=== PATIENT | female | born 1960 | race Caucasian/White ===

== ENCOUNTER → 2016-11-19 | Outpatient (CLI) | payer OTHER | LOC: LAB 14:15 | DX: Z00.00 Encounter for general adult medical examination without abnormal findings (principal); R73.02 Impaired glucose tolerance (oral); E03.4 Atrophy of thyroid (acquired); R10.11 Right upper quadrant pain; N39.0 Urinary tract infection, site not specified ==

== ENCOUNTER → 2016-11-28 | Outpatient (CLI) | payer OTHER | LOC: LAB 15:04 | DX: Z00.00 Encounter for general adult medical examination without abnormal findings (principal); N39.0 Urinary tract infection, site not specified; R73.02 Impaired glucose tolerance (oral); Z12.11 Encounter for screening for malignant neoplasm of colon ==

== ENCOUNTER → 2016-11-30 | Outpatient (CLI) | payer OTHER | LOC: RAD 08:38 | DX: R10.84 Generalized abdominal pain (principal); R93.8 Abnormal findings on diagnostic imaging of other specified body structures; N20.0 Calculus of kidney ==

== ENCOUNTER → 2016-12-05 | Outpatient (CLI) | payer OTHER | LOC: LAB 16:13 | DX: N30.01 Acute cystitis with hematuria (principal) ==

== ENCOUNTER → 2016-12-10 | Outpatient (CLI) | payer OTHER | LOC: LAB 12:52 | DX: Z00.00 Encounter for general adult medical examination without abnormal findings (principal); N30.01 Acute cystitis with hematuria; R73.02 Impaired glucose tolerance (oral) ==

== ENCOUNTER → 2017-01-07 | Outpatient (CLI) | payer OTHER | LOC: RAD 09:04 → LAB 09:04 | DX: R10.84 Generalized abdominal pain (principal); K57.30 Diverticulosis of large intestine without perforation or abscess without bleeding ==

== ENCOUNTER → 2017-02-20 | Outpatient (CLI) | payer OTHER | LOC: LAB 15:58 | DX: E11.9 Type 2 diabetes mellitus without complications (principal); K57.32 Diverticulitis of large intestine without perforation or abscess without bleeding ==

== ENCOUNTER → 2017-06-11 | Outpatient (CLI) | payer BC | LOC: LAB 07:59 | DX: E11.8 Type 2 diabetes mellitus with unspecified complications (principal); E78.2 Mixed hyperlipidemia; K57.30 Diverticulosis of large intestine without perforation or abscess without bleeding; K27.3 Acute peptic ulcer, site unspecified, without hemorrhage or perforation ==

== ENCOUNTER → 2017-10-10 | Outpatient (CLI) | payer BC | LOC: LAB 07:33 | DX: E11.9 Type 2 diabetes mellitus without complications (principal); Z88.0 Allergy status to penicillin; Z88.8 Allergy status to other drugs, medicaments and biological substances; Z91.041 Radiographic dye allergy status ==

== ENCOUNTER 2018-01-28 13:22 | Emergency (ER) | payer BC ==
[2018-01-28 14:10] LABS: EOS # 0.2 (0.04-0.40); EOS % 1.8 % (1.0-5.0); HEMATOCRIT 41.8 % (37.0-47.0); HEMOGLOBIN 14.2 g/dL (12.5-16.0); LYMPH# 1.8 (1.50-4.00); MEAN CELL VOLUME 90 fl (78-100); MEAN CORPUSCULAR HEMOGLOBIN 31 pg (27-31); MEAN CORPUSCULAR HGB CONC 34 g/dL (33-37); MONO # 0.6 (0.20-0.80); PLATELET COUNT 272 K/mm3 (130-400); RED BLOOD COUNT 4.64 M/mm3 (4.10-5.30); RED CELL DISTRIBUTION WIDTH 13.1 % (11.5-14.5); WHITE BLOOD COUNT 11.8 K/mm3 (4.8-10.8)
[2018-01-28 14:15] LABS: NEU # 9.2 (1.40-6.50)
[2018-01-28 14:22] LABS: ALBUMIN 4.2 g/dL (3.5-5.0); ALT/SGPT 29 U/L (9-52); AST-SGOT 20 U/L (14-36); BUN/CREATININE RATIO 25.2 (6.0-26.0); CALCIUM 9.7 mg/dL (8.4-10.2); CARBON DIOXIDE 27 mmol/L (22-30); GLUCOSE 234 mg/dL (65-105); POTASSIUM 4.2 mmol/L (3.6-5.0); SODIUM 139 mmol/L (137-145); TOTAL BILIRUBIN 0.4 mg/dL (0.2-1.3); TOTAL PROTEIN 7.9 g/dL (6.3-8.2)
[2018-01-28 14:42] LABS: URINE APPEARANCE CLEAR; URINE BILIRUBIN NEGATIVE (NEGATIVE); URINE BLOOD 50 ery/uL (NEGATIVE); URINE COLOR YELLOW; URINE KETONE NEGATIVE (NEGATIVE); URINE LEUKOCYTE ESTERASE NEGATIVE (NEGATIVE); URINE NITRATE NEGATIVE (NEGATIVE); URINE PROTEIN(semi-quant) TRACE mg/dL (NEGATIVE); URINE UROBILINOGEN NORMAL (NORMAL)
[2018-01-28 14:43] LABS: URINE MUCUS PRESENT (NOT PRESENT)
[2018-01-28 15:03] LABS: LIPASE > 24000 U/L (23-300)
[2018-01-28 17:56] VITALS: BP 195/100
== END 2018-01-28 17:56 | disposition short-term general hospital (02) ==
LOC: ED 13:22
PROVIDERS: Physician Assistant
DX: K85.90 Acute pancreatitis without necrosis or infection, unspecified (principal); E11.9 Type 2 diabetes mellitus without complications; R60.0 Localized edema
CPT/HCPCS: J1885; J2405; J3010; J7030

== ENCOUNTER → 2018-02-07 | Outpatient (CLI) | payer BC ==
[2018-01-28 17:56] VITALS: BP 195/100
[2018-02-07 08:38] LABS: EOS # 0.3 (0.04-0.40); EOS % 3.9 % (1.0-5.0); HEMATOCRIT 41.6 % (37.0-47.0); HEMOGLOBIN 13.9 g/dL (12.5-16.0); LYMPH# 2.3 (1.50-4.00); MEAN CELL VOLUME 91 fl (78-100); MEAN CORPUSCULAR HEMOGLOBIN 30 pg (27-31); MEAN CORPUSCULAR HGB CONC 33 g/dL (33-37); MEAN PLATELET VOLUME 8.6 fl (7.4-10.4); MONO # 0.5 (0.20-0.80); NEU # 4.8 (1.40-6.50); PLATELET COUNT 375 K/mm3 (130-400); RED BLOOD COUNT 4.57 M/mm3 (4.10-5.30); RED CELL DISTRIBUTION WIDTH 12.9 % (11.5-14.5)
[2018-02-07 08:59] LABS: ALBUMIN 4.3 g/dL (3.5-5.0); BUN/CREATININE RATIO 23.8 (6.0-26.0); CALCIUM 9.4 mg/dL (8.4-10.2); POTASSIUM 4.3 mmol/L (3.6-5.0); TOTAL BILIRUBIN 0.5 mg/dL (0.2-1.3); TOTAL PROTEIN 8.2 g/dL (6.3-8.2)
[2018-02-07 09:41] LABS: ERYTHROCYTE SEDIMENTATION RATE 57 mm/hr (0-30)
== END ==
LOC: LAB 08:28
PROVIDERS: Internal Medicine
DX: E11.9 Type 2 diabetes mellitus without complications (principal); K85.00 Idiopathic acute pancreatitis without necrosis or infection; G47.33 Obstructive sleep apnea (adult) (pediatric)

== ENCOUNTER → 2018-04-17 | Outpatient (CLI) | payer BC ==
[2018-04-17 11:49] LABS: EOS # 0.2 (0.04-0.40); EOS % 1.8 % (1.0-5.0); HEMATOCRIT 40.4 % (37.0-47.0); HEMOGLOBIN 13.8 g/dL (12.5-16.0); MEAN CELL VOLUME 92 fl (78-100); MEAN CORPUSCULAR HEMOGLOBIN 31 pg (27-31); MEAN CORPUSCULAR HGB CONC 34 g/dL (33-37); MEAN PLATELET VOLUME 8.7 fl (7.4-10.4); MONO # 0.5 (0.20-0.80); NEU # 4.8 (1.40-6.50); PLATELET COUNT 338 K/mm3 (130-400); RED BLOOD COUNT 4.39 M/mm3 (4.10-5.30); WHITE BLOOD COUNT 8.4 K/mm3 (4.8-10.8)
[2018-04-17 12:06] LABS: ALBUMIN 4.4 g/dL (3.5-5.0); BUN/CREATININE RATIO 19.6 (6.0-26.0); CALCIUM 9.7 mg/dL (8.4-10.2); POTASSIUM 4.3 mmol/L (3.6-5.0); TOTAL BILIRUBIN 0.5 mg/dL (0.2-1.3); TOTAL PROTEIN 7.9 g/dL (6.3-8.2)
[2018-04-17 12:51] LABS: ERYTHROCYTE SEDIMENTATION RATE 60 mm/hr (0-30)
== END ==
LOC: LAB 11:36
PROVIDERS: Internal Medicine
DX: R73.02 Impaired glucose tolerance (oral) (principal); K85.90 Acute pancreatitis without necrosis or infection, unspecified; G47.33 Obstructive sleep apnea (adult) (pediatric); E03.9 Hypothyroidism, unspecified

== ENCOUNTER 2019-01-04 20:11 | Emergency (ER) | payer BC ==
[~2019-01-04] VITALS: Ht 157.5 cm; Wt 127.3 kg
[2019-01-04] MEDS ORDERED: VIBRAMYCIN HYC100 MG PO (20:59)
[2019-01-04] MEDS ORDERED: RT ALBUTEROL CC18 GM IH (21:00)
[2019-01-04] MEDS ORDERED: ADVAIR DISKUS1 DS2 IH (21:00)
[2019-01-04] MEDS ORDERED: LEVO-T50 MCG PO (21:01)
[2019-01-04] MEDS ORDERED: OMEPRAZOLE40 MG PO (21:01)
[2019-01-04 22:10] LABS: HEMATOCRIT 44.3 % (37.0-47.0); MEAN CELL VOLUME 90 fl (78-100); MEAN CORPUSCULAR HEMOGLOBIN 30 pg (27-31); MEAN CORPUSCULAR HGB CONC 34 g/dL (33-37); PLATELET COUNT 301 K/mm3 (130-400); RED BLOOD COUNT 4.94 M/mm3 (4.10-5.30)
[2019-01-04 22:22] LABS: ALBUMIN 4.8 g/dL (3.5-5.0); BAND 3 % (0-10); CALCIUM 9.7 mg/dL (8.4-10.2); LYMPHOCYTE 5 % (20-51); MONOCYTE 3 % (3-10); NEUTROPHILS 88 % (42-75); POTASSIUM 4.1 mmol/L (3.6-5.0); TOTAL BILIRUBIN 0.7 mg/dL (0.2-1.3); TOTAL PROTEIN 8.2 g/dL (6.3-8.2)
[2019-01-04 22:44] LABS: URINE APPEARANCE CLOUDY; URINE BILIRUBIN NEGATIVE (NEGATIVE); URINE BLOOD 250 ery/uL (NEGATIVE); URINE COLOR YELLOW; URINE KETONE 2+ (NEGATIVE); URINE LEUKOCYTE ESTERASE TRACE (NEGATIVE); URINE MUCUS PRESENT (NOT PRESENT); URINE NITRATE NEGATIVE (NEGATIVE); URINE PROTEIN(semi-quant) 2+ mg/dL (NEGATIVE); URINE UROBILINOGEN NORMAL (NORMAL)
[2019-01-05] MEDS ORDERED: METRONIDAZOLE500 M1 PO (01:53)
[2019-01-05] MEDS ORDERED: ZOFRAN ODT4 MG PO (01:53)
[2019-01-05] MEDS ORDERED: NORCO 325 MG-51 TA1 PO (01:53)
[2019-01-05] MEDS ORDERED: CIPRO500 M1 PO (01:53)
[2019-01-05 02:12] VITALS: BP 172/105
== END 2019-01-05 02:12 | disposition home or self-care (01) ==
LOC: ED 20:11
PROVIDERS: Family Medicine
DX: K57.92 Diverticulitis of intestine, part unspecified, without perforation or abscess without bleeding (principal); R31.9 Hematuria, unspecified; K21.9 Gastro-esophageal reflux disease without esophagitis; E66.9 Obesity, unspecified; Z79.51 Long term (current) use of inhaled steroids; Z90.49 Acquired absence of other specified parts of digestive tract; Z87.19 Personal history of other diseases of the digestive system
CPT/HCPCS: A4216; J0696; J2405; J3010; J3490; J7030

== ENCOUNTER → 2019-02-03 | Outpatient (CLI) | payer BC ==
[2019-01-21 20:40] VITALS: BP 180/102
[~2019-02-03] MED LIST: ADVAIR DISKUS1 DS2 IH; CIPRO500 M1 PO; LEVO-T50 MCG PO; METRONIDAZOLE500 M1 PO; NORCO 325 MG-51 TA1 PO; OMEPRAZOLE40 MG PO; RT ALBUTEROL CC18 GM IH; VIBRAMYCIN HYC100 MG PO; ZOFRAN ODT4 MG PO
== END ==
LOC: LAB 07:04
DX: Z00.00 Encounter for general adult medical examination without abnormal findings (principal)

== ENCOUNTER → 2019-02-09 | Outpatient (CLI) | payer BC ==
[2019-01-21 20:40] VITALS: BP 180/102
[2019-02-09 09:17] LABS: EOS # 0.2 (0.04-0.40); EOS % 2.9 % (1.0-5.0); HEMATOCRIT 39.6 % (37.0-47.0); LYMPH# 2.2 (1.50-4.00); MEAN CELL VOLUME 93 fl (78-100); MEAN CORPUSCULAR HEMOGLOBIN 30 pg (27-31); MEAN CORPUSCULAR HGB CONC 33 g/dL (33-37); MEAN PLATELET VOLUME 8.7 fl (7.4-10.4); MONO # 0.4 (0.20-0.80); NEU # 3.9 (1.40-6.50); PLATELET COUNT 301 K/mm3 (130-400); RED BLOOD COUNT 4.27 M/mm3 (4.10-5.30); RED CELL DISTRIBUTION WIDTH 13.5 % (11.5-14.5); WHITE BLOOD COUNT 6.8 K/mm3 (4.8-10.8)
[2019-02-09 09:35] LABS: CALCIUM 9.7 mg/dL (8.3-10.5); TOTAL BILIRUBIN 0.3 mg/dL (0.2-1.2); TOTAL PROTEIN 7.2 g/dL (6.4-8.3)
[2019-02-09 09:41] LABS: URINE APPEARANCE CLEAR; URINE BILIRUBIN NEGATIVE (NEGATIVE); URINE BLOOD TRACE (NEGATIVE); URINE COLOR YELLOW; URINE KETONE NEGATIVE (NEGATIVE); URINE LEUKOCYTE ESTERASE NEGATIVE (NEGATIVE); URINE NITRATE NEGATIVE (NEGATIVE); URINE PROTEIN(semi-quant) NEGATIVE (NEGATIVE); URINE UROBILINOGEN NORMAL (NORMAL)
[2019-02-09 09:42] LABS: URINE MUCUS PRESENT (NOT PRESENT)
[2019-02-09 10:18] LABS: ERYTHROCYTE SEDIMENTATION RATE 48 mm/hr (0-30)
== END ==
LOC: LAB 09:01
PROVIDERS: Internal Medicine
DX: Z00.00 Encounter for general adult medical examination without abnormal findings (principal)

== ENCOUNTER → 2019-03-24 | Outpatient (CLI) | payer BC ==
[2019-01-21 20:40] VITALS: BP 180/102
== END ==
LOC: LAB 07:26
DX: E03.9 Hypothyroidism, unspecified (principal); K90.9 Intestinal malabsorption, unspecified

== ENCOUNTER → 2021-01-24 | Outpatient (CLI) | payer BC ==
[2019-01-21 20:40] VITALS: BP 180/102
[2021-01-24 09:37] LABS: BASO # 0.05 (0.02-0.10); EOS # 0.22 (0.04-0.40); EOS % 3.3 % (1.0-5.0); HEMATOCRIT 40.9 % (37.0-47.0); LYMPH# 2.33 (1.50-4.00); MEAN CELL VOLUME 91 fl (78-100); MEAN CORPUSCULAR HEMOGLOBIN 31 pg (27-31); MEAN CORPUSCULAR HGB CONC 34 g/dL (33-37); MONO # 0.41 (0.20-0.80); PLATELET COUNT 229 K/mm3 (130-400); RED BLOOD COUNT 4.51 M/mm3 (4.10-5.30); RED CELL DISTRIBUTION WIDTH 12.7 % (11.5-14.5); WHITE BLOOD COUNT 6.7 K/mm3 (4.8-10.8)
[2021-01-24 09:51] LABS: URINE APPEARANCE HAZY; URINE BILIRUBIN NEGATIVE (NEGATIVE); URINE BLOOD 50 ery/uL (NEGATIVE); URINE COLOR YELLOW; URINE KETONE NEGATIVE (NEGATIVE); URINE LEUKOCYTE ESTERASE NEGATIVE (NEGATIVE); URINE MUCUS PRESENT (NOT PRESENT); URINE NITRATE NEGATIVE (NEGATIVE); URINE PROTEIN(semi-quant) TRACE mg/dL (NEGATIVE); URINE UROBILINOGEN NORMAL (NORMAL)
[2021-01-24 09:53] LABS: POTASSIUM 4.3 mmol/L (3.5-5.1)
[2021-01-24 09:54] LABS: ALBUMIN 4.1 g/dL (3.5-5.0)
[2021-01-24 09:55] LABS: CALCIUM 8.9 mg/dL (8.3-10.5)
[2021-01-24 09:56] LABS: TOTAL PROTEIN 7.4 g/dL (6.4-8.3)
[2021-01-24 09:58] LABS: TOTAL BILIRUBIN 0.5 mg/dL (0.2-1.2)
== END ==
LOC: LAB 09:22
PROVIDERS: Nurse Practitioner Primary Care
DX: Z00.00 Encounter for general adult medical examination without abnormal findings (principal); M89.9 Disorder of bone, unspecified

== ENCOUNTER → 2021-01-31 | Outpatient (CLI) | payer BC ==
[2019-01-21 20:40] VITALS: BP 180/102
[2021-01-31 08:18] LABS: URINE APPEARANCE HAZY; URINE BILIRUBIN NEGATIVE (NEGATIVE); URINE BLOOD 250 ery/uL (NEGATIVE); URINE COLOR YELLOW; URINE KETONE NEGATIVE (NEGATIVE); URINE LEUKOCYTE ESTERASE NEGATIVE (NEGATIVE); URINE MUCUS PRESENT (NOT PRESENT); URINE NITRATE NEGATIVE (NEGATIVE); URINE PROTEIN(semi-quant) NEGATIVE (NEGATIVE); URINE UROBILINOGEN NORMAL (NORMAL)
== END ==
LOC: LAB 07:55
PROVIDERS: Nurse Practitioner Primary Care
DX: N30.01 Acute cystitis with hematuria (principal)

== ENCOUNTER → 2021-05-11 | Outpatient (CLI) | payer SELFPAY ==
[2021-05-11 07:20] LABS: BASO # 0.04 (0.02-0.10); EOS # 0.25 (0.04-0.40); EOS % 3.2 % (1.0-5.0); HEMATOCRIT 38.6 % (37.0-47.0); HEMOGLOBIN 13.1 g/dL (12.5-16.0); LYMPH# 2.32 (1.50-4.00); MEAN CELL VOLUME 92 fl (78-100); MEAN CORPUSCULAR HEMOGLOBIN 31 pg (27-31); MEAN CORPUSCULAR HGB CONC 34 g/dL (33-37); MEAN PLATELET VOLUME 8.5 fl (7.4-10.4); MONO # 0.48 (0.20-0.80); NEU # 4.84 (1.40-6.50); PLATELET COUNT 266 K/mm3 (130-400); RED BLOOD COUNT 4.22 M/mm3 (4.10-5.30); RED CELL DISTRIBUTION WIDTH 12.9 % (11.5-14.5); WHITE BLOOD COUNT 7.9 K/mm3 (4.8-10.8)
[2021-05-11 07:23] LABS: CALCIUM 9.7 mg/dL (8.3-10.5)
[2021-05-11 07:24] LABS: TOTAL PROTEIN 7.4 g/dL (6.4-8.3)
[2021-05-11 07:26] LABS: TOTAL BILIRUBIN 0.6 mg/dL (0.2-1.2)
== END ==
LOC: LAB 07:00
PROVIDERS: Nurse Practitioner Primary Care
DX: Z09 Encounter for follow-up examination after completed treatment for conditions other than malignant neoplasm (principal)

== ENCOUNTER 2022-04-14 01:46 | Emergency (ER) | payer BC ==
[~2022-04-14] VITALS: Ht 160 cm; Wt 106.4 kg
[2022-04-14] MEDS ORDERED: MEDROL 4MG DOSPA4 MG PO (02:03)
[2022-04-14 03:15] LABS: BASO # 0.02 K/mm3 (0.02-0.10); HEMATOCRIT 42.3 % (37.0-47.0); HEMOGLOBIN 14.5 g/dL (12.5-16.0); LYMPH# 0.68 K/mm3 (1.50-4.00); MEAN CELL VOLUME 91 fl (78-100); MEAN CORPUSCULAR HEMOGLOBIN 31 pg (27-31); MEAN CORPUSCULAR HGB CONC 34 g/dL (33-37); MEAN PLATELET VOLUME 8.6 fl (7.4-10.4); MONO # 0.09 K/mm3 (0.20-0.80); PLATELET COUNT 281 K/mm3 (130-400); RED BLOOD COUNT 4.65 M/mm3 (4.10-5.30); RED CELL DISTRIBUTION WIDTH 12.6 % (11.5-14.5); WHITE BLOOD COUNT 6.6 K/mm3 (4.8-10.8)
[2022-04-14 03:17] LABS: POTASSIUM 4.8 mmol/L (3.5-5.1)
[2022-04-14 03:18] LABS: CALCIUM 9.6 mg/dL (8.3-10.5)
[2022-04-14] MEDS ORDERED: METOPROLOL SUCC25 M1 PO (07:03)
[2022-04-14 07:25] VITALS: BP 141/97
== END 2022-04-14 07:25 | disposition home or self-care (01) ==
LOC: ED 01:46
PROVIDERS: Family Medicine
DX: R00.2 Palpitations (principal); R61 Generalized hyperhidrosis; R06.02 Shortness of breath
CPT/HCPCS: J7040; Q9967